=== PATIENT | male | born 1985 ===

== ENCOUNTER 2019-10-07 15:08 | Emergency (ER) | payer SELFPAY ==
--- NOTE | 2019-10-07 16:28 | ED ---
Respiratory - HPI Summary HPI Summary: Mr. Duff is cough, congestion and stuffed up ears for about a week. He has been using some herbal remedies as well as melatonin to help him sleep at night. He is not short of breath. He thinks he probably has had some fevers. He is a nonsmoker - History of Current Complaint Chief Complaint: UCRespiratory Stated Complaint: URI Time Seen by Provider: 10/07/19 16:11 Hx Obtained From: Patient Onset/Duration: Gradual Onset, Lasting Days Initial Severity: Moderate Current Severity: Moderate Pain Intensity: 7 Character: Cough (Productive) Sputum Amount: Small Aggravating Factor(s): Nothing Alleviating Factor(s): Nothing Associated Signs and Symptoms: Nasal Congestion, Hoarseness, Sinus Discomfort - Allergy/Home Medications Allergies/Adverse Reactions: Allergies Allergy/AdvReac Type Severity Reaction Status Date / Time No Known Allergies Allergy Verified 10/07/19 16:08 Home Medications: Home Medications NK [No Home Medications Reported] 10/07/19 [History Confirmed 10/07/19] PMH/Surg Hx/FS Hx/Imm Hx Previously Healthy: Yes Infectious Disease History: No Infectious Disease History: Denies: Traveled Outside the [place] in Last 30 Days - Social History Alcohol Use: Weekly Substance Use Type: Reports: None Smoking Status (MU): Former Smoker Review of Systems Positive: Chills, Fatigue Eyes: Negative Positive: Sore Throat, Ear Ache, Nasal Discharge Cardiovascular: Negative Positive: Cough Skin: Negative Neurological: Negative All Other Systems Reviewed And Are Negative: Yes Physical Exam - Summary Physical Exam Summary: He is nontoxic in appearance with stable vital signs Triage Information Reviewed: Yes Vital Signs On Initial Exam: Initial Vitals Temp Pulse Resp BP Pulse Ox 99.3 F 80 16 110/76 100 10/07/19 16:02 10/07/19 16:02 10/07/19 16:02 10/07/19 16:02 10/07/19 16:02 Vital Signs Reviewed: Yes Skin: Positive: Warm, Skin Color Reflects Adequate Perfusion, Dry ENT: Positive: Pharyngeal erythema, Nasal congestion, Nasal drainage, TM dull, Hoarse voice Neck: Positive: Supple, Nontender, No Lymphadenopathy Respiratory/Lung Sounds: Positive: Clear to Auscultation, Breath Sounds Present Cardiovascular: Positive: Normal Diagnostics - Vital Signs Vital Signs Temp Pulse Resp BP Pulse Ox 10/07/19 16:02 99.3 F 80 16 110/76 100 - Laboratory Lab Statement: Any lab studies that have been ordered have been reviewed, and results considered in the medical decision making process. Disposition - Course Course Of Treatment: He has a URI. I think he needs to be decongested for symptomatic relief as well as cough control so he can sleep at night. I'm going to give him guaifenesin with codeine. - Diagnoses Provider Diagnoses: URI (upper respiratory infection) Discharge ED - Sign-Out/Discharge Documenting (check all that apply): Patient Departure All imaging exams completed and their final reports reviewed: No Studies - Discharge Plan Condition: Stable Disposition: HOME Patient Education Materials: Upper Respiratory Infection (ED) Referrals: No Primary Care Phys,NOPCP [Primary Care Provider] - - Billing Disposition and Condition Condition: STABLE Disposition: Home
== END 2019-10-07 17:00 | disposition home or self-care (01) ==
LOC: UCEAST 15:08
DX: J06.9 Acute upper respiratory infection, unspecified (principal); H92.09 Otalgia, unspecified ear; Z87.891 Personal history of nicotine dependence
CPT/HCPCS: 99202; G0463

== ENCOUNTER 2020-01-17 09:35 | Emergency (ER) | payer MEDICAID, OTHER ==
--- NOTE | 2020-01-17 10:30 | UC ---
Respiratory Complaint HPI - HPI Summary HPI Summary: 34 yo male presents with URI symptoms. He tells me that for the last week he has had a dry cough, runny nose, and post nasal drip. Has been taking sudafed OTC with little relief. 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 He is concerned about COVID today. He has no recent travel or known positive contacts. He does not smoke. Denies fever, chills, SOB, chest pain, abdominal pain, n/v. - History of Current Complaint Chief Complaint: UCGeneralIllness Stated Complaint: COUGH NASAL CONGESTION Time Seen by Provider: 01/17/20 10:30 Hx Obtained From: Patient Onset/Duration: Gradual Onset Severity Currently: None Pain Intensity: 0 - Allergies/Home Medications Allergies/Adverse Reactions: Allergies Allergy/AdvReac Type Severity Reaction Status Date / Time No Known Allergies Allergy Verified 01/17/20 10:21 Home Medications: Home Medications NK [No Home Medications Reported] 01/17/20 [History Confirmed 01/17/20] PMH/Surg Hx/FS Hx/Imm Hx - Additional Past Medical History Additional PMH: None - Surgical History Surgical History: None - Family History Known Family History: Positive: None - Social History Occupation: Employed Full-time Lives: With Family Alcohol Use: Weekly Substance Use Type: None Smoking Status (MU): Former Smoker Review of Systems All Other Systems Reviewed And Are Negative: No Constitutional: Positive: Negative Skin: Positive: Negative Eyes: Positive: Negative ENT: Positive: Nasal Discharge Respiratory: Positive: Cough Cardiovascular: Positive: Negative Gastrointestinal: Positive: Negative Neurological/Mental Status: Positive: Negative Psychological: Positive: Negative Physical Exam - Summary Physical Exam Summary: GENERAL: NAD. WDWN. No pain distress. SKIN: No rashes, sores, lesions, or open wounds. HEENT: Head: AT/NC Eyes: EOM intact. Conjunctiva clear without inflammation or discharge. Ears: Hearing grossly normal. TMs intact, no bulging, erythema, or edema. Nose: Nasal mucosa pink and moist. NTTP maxillary and frontal sinus. Throat: Posterior oropharynx without exudates, erythema, or tonsillar enlargement. Uvula midline. NECK: Supple. Nontender. No lymphadenopathy. CHEST: CTAB. No r/r/w. No accessory muscle use. Breathing comfortably and in no distress. CV: RRR. Pulses intact. Cap refill <2seconds NEURO: Alert. PSYCH: Age appropriate behavior. Triage Information Reviewed: Yes Vital Signs: Initial Vital Signs Temp 98.5 F 01/17/20 10:17 Pulse 89 01/17/20 10:17 Resp 20 01/17/20 10:17 BP 146/90 01/17/20 10:17 Pulse Ox 100 01/17/20 10:17 Laboratory Tests 01/17/20 01/17/20 11:33 11:35 Influenza A (Rapid) Negative Influenza B (Rapid) Negative Group A Strep Rapid Negative Vital Signs Reviewed: Yes Respiratory Course/Dx - Course Course Of Treatment: POC strep and flu negative. Low suspicion for COVID, but given his continued cough and recent contact with many individuals in the general public - he is requesting testing today. Advised to be on home isolation until cleared by health department. Examined with PPE per CDC. - Differential Dx/Diagnosis Provider Diagnosis: Viral syndrome Discharge ED - Sign-Out/Discharge Documenting (check all that apply): Patient Departure All imaging exams completed and their final reports reviewed: No Studies - Discharge Plan Condition: Stable Disposition: HOME Patient Education Materials: Viral Syndrome (ED) Referrals: No Primary Care Phys,NOPCP [Primary Care Provider] - Additional Instructions: STREP AND FLU TESTS NEGATIVE TODAY You are being tested for COVID-19. You need to quarantine yourself in a bedroom and bathroom only you are using. You may not leave the house. [facility] will contact pt tomorrow and notify of results when they are available. Advised to be on home isolation until cleared by the health department. Go to ED for increased SOB or any difficulty breathing - new or worsening symptoms. Your symptoms are likely from a viral infection. Viral infections do not respond to antibiotics and are limited to the treatment of symptoms. Viral infections typically run their course in 7-10 days. Drink plenty of fluids, especially if you are running any fever. Use salt water gargles several times a day. Take over the counter acetaminophen (Tylenol) or ibuprofen (Advil, Motrin) according to directions as needed for pain or fever. You may also use Chloraseptic spray or Cepacol lonzenges according to directions which contain a numbing medication and can provide some temporary relief from a sore throat. Return here or follow up with your primary care provider in 7 days if symptoms persist. - Billing Disposition and Condition Condition: STABLE Disposition: Home - Attestation Statements Provider Attestation: This patient was not seen by me. I was available for consult. Chart reviewed. MONY
[2020-01-17 11:46] LABS: Influenza A Molecular Negative (Negative); Influenza B Molecular Negative (Negative)
== END 2020-01-17 11:50 | disposition home or self-care (01) ==
LOC: UCEAST 09:35
DX: B34.9 Viral infection, unspecified (principal); R05 Cough; R09.89 Other specified symptoms and signs involving the circulatory and respiratory systems; R09.82 Postnasal drip; R09.81 Nasal congestion; Z87.891 Personal history of nicotine dependence
CPT/HCPCS: 87651; 99211; G0463; U0002